=== PATIENT | female | born 1950 | race Two or more races ===

== ENCOUNTER 2020-11-01 10:38 | Outpatient (CLI) | payer OTHER | END 2020-11-01 10:49 | disposition home or self-care (01) | LOC: SONOGRAMA 10:38 | PROVIDERS: ATTEND Pathology Anatomic Pathology & Clinical Pathology | DX: D34 Benign neoplasm of thyroid gland (principal); E04.1 Nontoxic single thyroid nodule; E04.8 Other specified nontoxic goiter ==